=== PATIENT | female | born 1930 | race Caucasian/White ===

== ENCOUNTER 2016-11-16 23:06 | Emergency (ER) | payer MEDICARE, BC ==
[~2016-11-16 23:06] MED LIST: ADVAIR 2501 DISK W/D IH; ADVAIR 25028 BLISTE1 INH; ADVAIR 25028 BLISTE1 PO; ADVAIR 50028 BLISTE1 PO; ALPRAZOLAM0.25 M3 PO; ANTI-DIARRHEA2 MG PO; ASPIR 8181 M1 PO; ASPIR 8181 MG PO; ASPIRIN325 M3 PO; ASPIRIN81 M1 PO; ATROPINE SULFAT15 M1 RIGHT EYE; AUGMENTIN 875-1 EAC2 PO; BISOPROLOL FUMAR5 MG PO; CALCIUM600 M1 PO; CALTRATE 600 +1 EACH PO; CELLUVISC OP; COLACE100 M1 PO; EYLEA2 MG/0.01; EYLEA2 MG/0.01 IO; FAMOTIDINE40 MG/5 ML PO; IRON325 M3 PO; KEFLEX500 M4 PO; LIQUITEARS15 M1 EACH EYE; MILK OF MAGNESIA PO; MIRALAX17 G2 PO; NORCO 5-325 TA1 EACH PO; NORCO 5/3251 TA1 PO; NUCYNTA50 M1 PO; OMEPRAZOLE40 M2 PO; ONDANSETRON ODT4 M1 PO; POLYMYXIN B-TMP10 M1 RIGHT EYE; PREDNISOLONE ACE5 M1 RIGHT EYE; PREDNISONE10 M1 PO; PREDNISONE20 M1 PO; REFRESH P.M. O3.5 G2 RIGHT EYE; SENOKOT8.6 M1 PO; SERTRALINE HCL25 M3 PO; SIMVASTATIN; SIMVASTATIN20 M1 PO; SOTALOL; SOTALOL PO; SOTALOL80 M1 PO; SPIRIVA18 MC1 INH; SPIRIVA18 MCG IH; SYSTANE GEL EYE10 M1 OP; SYSTANE ULTRA 010 M1 EACH EYE; TYLENOL325 M2 PO; ULTRAM50 M1 PO; VALTREX500 M1 PO; VASOTEC2.5 MG PO; VIGAMOX3 M1 RIGHT EYE; VITAMIN D-32000 UNI4 PO; VITAMIN D350000 UNI1 PO; ZITHROMAX250 M1 PO; [UNRECOGNIZED DRUG - CODE] TOP; [UNRECOGNIZED DRUG - OTHER] OP; [UNRECOGNIZED DRUG - OTHER] RIGHT EYE
[2016-11-17] MEDS ORDERED: ADVAIR 25028 BLISTE1 PO (00:12)
[2016-11-17] MEDS ORDERED: [UNRECOGNIZED DRUG - OTHER] PO (00:13)
[2016-11-17] MEDS ORDERED: ASPIRIN81 M1 PO (00:13)
[2016-11-17] MEDS ORDERED: AYR (00:13)
[2016-11-17] MEDS ORDERED: CALCIUM CARBON600 M2 PO (00:14)
[2016-11-17] MEDS ORDERED: SYNTHROID25 MC1 PO (00:14)
[2016-11-17] MEDS ORDERED: FEROSUL325 M1 PO (00:14)
[2016-11-17] MEDS ORDERED: LIQUITEARS15 M1 OP (00:14)
[2016-11-17] MEDS ORDERED: OXYGEN (00:15)
[2016-11-17] MEDS ORDERED: [UNRECOGNIZED DRUG - OTHER] (00:15)
[2016-11-17] MEDS ORDERED: OMEPRAZOLE40 M2 PO (00:15)
[2016-11-17] MEDS ORDERED: GAVILAX17 G2 PO (00:15)
[2016-11-17] MEDS ORDERED: ZOCOR20 M1 PO (00:16)
[2016-11-17] MEDS ORDERED: POLYMYXIN B-TMP10 M1 RIGHT EYE (00:16)
[2016-11-17] MEDS ORDERED: ZOLOFT25 M1 PO (00:16)
[2016-11-17] MEDS ORDERED: SPIRIVA18 MC1 INH (00:17)
[2016-11-17] MEDS ORDERED: BETAPACE80 M2 PO (00:17)
[2016-11-17] MEDS ORDERED: VITAMIN D31000 UNI3 PO ×2 (00:18→00:19)
[2016-11-17] MEDS ORDERED: VALTREX500 M1 PO (00:18)
[2016-11-17] MEDS ORDERED: ZOFRAN4 M2 PO (00:20)
[2016-11-17] MEDS ORDERED: PROAIR HFA8.5 GM INH (00:20)
[2016-11-17] MEDS ORDERED: MILK OF MAGNESIA PO (00:20)
[2016-11-17] MEDS ORDERED: HYDROCORTISO453.6 G4 TP (00:20)
[2016-11-17] MEDS ORDERED: ROBAFEN100 MG/52 PO (00:21)
[2016-11-17] MEDS ORDERED: SYSTANE 0.3-0.1 EACH OP (00:22)
[2016-11-17] MEDS ORDERED: TYLENOL325 M2 PO (00:23)
[2016-11-17] MEDS ORDERED: ALPRAZOLAM0.25 M3 PO (00:23)
[2016-11-17] MEDS ORDERED: ANTACID EXTRA PO (00:24)
[2016-11-17] MEDS ORDERED: ANTI-DIARRHEAL2 M3 PO (00:24)
[2016-11-17 01:20] LABS: BASO % 0.3 % (0-2); EOS % 2.2 % (0-7); EOSINOPHIL ABSOLUTE COUNT 0.1 tho/cmm (0.0-0.7); HGB-HEMOGLOBIN 7.4 gm/dl (12.0-15.5); IMMATURE GRANULOCYTES ABSOLUTE 0.02 tho/cmm (0-0.03); IMMATURE GRANULOCYTES PERCENT 0.3 % (0-0.3); LYMPH % 16.1 % (20-45); LYMPH ABSOLUTE COUNT 0.9 tho/cmm (0.8-4.5); MCH (MEAN CORPUSCULAR HGB) 24.9 pg (28.0-32.0); MCHC MEAN CORPUSCULAR HGB CONC 30.8 % (32.0-36.0); MCV (MEAN CELL VOLUME) 80.8 fl (82.0-96.0); MEAN PLATELET VOLUME 8.5 cmc (9.4-12.4); MONO % 11.9 % (0-12); MONOCYTE ABSOLUTE COUNT 0.7 tho/cmm (0.0-1.2); NEUTROPHILS % 69.2 % (40-80); PLATELET COUNT 221 tho/cmm (150-450); RED BLOOD COUNT 2.97 mil/cmm (4.00-5.20); WHITE BLOOD COUNT 5.8 tho/cmm (4.0-10.0)
[2016-11-17 01:42] LABS: ALB/GLOB RATIO 0.6 (0.8-2.0); ALBUMIN 2.3 g/dl (3.5-5.0); ALKALINE PHOSPHATASE 157 U/L (33-138); ALT/SGPT 13 U/L (12-78); ANION GAP 6 mmol/L (0-20); AST/SGOT 20 U/L (10-40); BILIRUBIN,TOTAL 0.2 mg/dl (0-1.5); BLOOD UREA NITROGEN 13 mg/dl (6-24); CALCIUM 8.6 mg/dl (8.5-10.5); CARBON DIOXIDE-VENOUS 37 mmol/L (22-32); CHLORIDE 97 mmol/l (96-110); CREATININE 0.42 mg/dl (0.50-1.10); GLUCOSE 106 mg/dL (70-110); LIPASE 66 U/L (73-393); SODIUM 136 mmol/L (135-145); eGFR VALUE FOR BLACK >90 mL/Min
[2016-11-17 03:35] LABS: URINE APPEARANCE HAZY; URINE BILIRUBIN NEGATIVE (NEG); URINE BLOOD SMALL (NEG); URINE COLOR YELLOW; URINE GLUCOSE (UA) NEGATIVE (NEG); URINE KETONE NEGATIVE (NEG); URINE LEUKOCYTE ESTERASE POSITIVE (NEG); URINE NITRITE NEGATIVE (NEG); URINE PROTEIN SMALL (NEG)
[2016-11-17 03:36] LABS: URINE EPITHELIAL CELLS 0 /[HPF] (0-10); URINE WBC 20-30 /[HPF] (0-5)
[2016-11-17] MEDS ORDERED: NORCO 5/3251 TAB PO (04:29)
[2016-11-17] MEDS ORDERED: COLACE100 M1 PO (04:29)
== END 2016-11-17 04:43 ==
LOC: EDMED 23:06
PROVIDERS: Emergency Medicine
DX: I71.2 Thoracic aortic aneurysm, without rupture (principal); D64.9 Anemia, unspecified; I50.9 Heart failure, unspecified; J44.9 Chronic obstructive pulmonary disease, unspecified; Z79.82 Long term (current) use of aspirin
CPT/HCPCS: J2405; J3010; J7030; Q9967

== ENCOUNTER 2016-11-22 16:41 | Emergency (ER) | payer BC, MEDICARE ==
[~2016-11-22 16:41] MED LIST changes: +ANTACID EXTRA PO; +ANTI-DIARRHEAL2 M3 PO; +AYR; +BETAPACE80 M2 PO; +CALCIUM CARBON600 M2 PO; +FEROSUL325 M1 PO; +GAVILAX17 G2 PO; +HYDROCORTISO453.6 G4 TP; +LIQUITEARS15 M1 OP; +NORCO 5/3251 TAB PO; +OXYGEN; +PROAIR HFA8.5 GM INH; +ROBAFEN100 MG/52 PO; +SYNTHROID25 MC1 PO; +SYSTANE 0.3-0.1 EACH OP; +VITAMIN D31000 UNI3 PO; +ZOCOR20 M1 PO; +ZOFRAN4 M2 PO; +ZOLOFT25 M1 PO; +[UNRECOGNIZED DRUG - OTHER]; +[UNRECOGNIZED DRUG - OTHER] PO
[2016-11-22] MEDS ORDERED: XANAX0.25 M1 PO ×2 (16:51→17:04)
[2016-11-22] MEDS ORDERED: ADVAIR 25028 BLISTE1 INH (16:51)
[2016-11-22] MEDS ORDERED: BAYER CHEWABLE81 M2 PO (16:52)
[2016-11-22] MEDS ORDERED: AYR SALINE NASA14 GM (16:53)
[2016-11-22] MEDS ORDERED: CALCIUM CARBON600 M2 PO (16:53)
[2016-11-22] MEDS ORDERED: CEFPODOXIME PR100 M1 PO (16:54)
[2016-11-22] MEDS ORDERED: FEROSUL325 M1 PO (16:55)
[2016-11-22] MEDS ORDERED: COLACE100 M1 PO ×2 (16:55→17:10)
[2016-11-22] MEDS ORDERED: SYNTHROID25 MC1 PO (16:56)
[2016-11-22] MEDS ORDERED: LIQUITEARS15 M1 OP (16:56)
[2016-11-22] MEDS ORDERED: OMEPRAZOLE40 M2 PO (16:57)
[2016-11-22] MEDS ORDERED: EYLEA2 MG/0.01 IO (16:58)
[2016-11-22] MEDS ORDERED: MIRALAX17 G2 PO (16:59)
[2016-11-22] MEDS ORDERED: ZOCOR20 M1 PO (17:00)
[2016-11-22] MEDS ORDERED: ZOLOFT25 M1 PO (17:00)
[2016-11-22] MEDS ORDERED: POLYMYXIN B-TMP10 M1 RIGHT EYE (17:00)
[2016-11-22] MEDS ORDERED: SPIRIVA18 MC1 INH (17:01)
[2016-11-22] MEDS ORDERED: VALTREX500 M1 PO (17:01)
[2016-11-22] MEDS ORDERED: BETAPACE80 M2 PO (17:01)
[2016-11-22] MEDS ORDERED: VITAMIN D-32000 UNI4 PO (17:02)
[2016-11-22] MEDS ORDERED: TYLENOL325 M2 PO (17:03)
[2016-11-22] MEDS ORDERED: VITAMIN D350000 UNI1 PO (17:03)
[2016-11-22] MEDS ORDERED: TUMS200 MG PO (17:05)
[2016-11-22] MEDS ORDERED: ANTI-DIARRHEAL2 M3 PO (17:07)
[2016-11-22] MEDS ORDERED: BISAC-EVAC10 MG PR (17:10)
[2016-11-22] MEDS ORDERED: CEPACOL SORE T1 EAC2 MM (17:10)
[2016-11-22] MEDS ORDERED: NORCO 5-325 TA1 EACH PO (17:11)
[2016-11-22] MEDS ORDERED: ANUSOL-HC30 G1 TOP (17:12)
[2016-11-22] MEDS ORDERED: PROAIR HFA8.5 GM INH (17:13)
[2016-11-22] MEDS ORDERED: MILK OF MAGNESIA PO (17:13)
[2016-11-22] MEDS ORDERED: ZOFRAN4 M2 PO (17:13)
[2016-11-22] MEDS ORDERED: SYSTANE 0.3-0.415 ML OP (17:14)
[2016-11-22] MEDS ORDERED: ROBAFEN100 MG/52 PO (17:14)
[2016-11-22 18:19] LABS: URINE BILIRUBIN NEGATIVE (NEG); URINE BLOOD NEGATIVE (NEG); URINE GLUCOSE (UA) NEGATIVE (NEG); URINE KETONE NEGATIVE (NEG); URINE LEUKOCYTE ESTERASE NEGATIVE (NEG); URINE NITRITE NEGATIVE (NEG); URINE PROTEIN NEGATIVE (NEG)
[2016-11-22 18:24] LABS: URINE APPEARANCE CLEAR; URINE COLOR YELLOW
[2016-11-22 18:28] LABS: BASO % 0.2 % (0-2); EOS % 1.7 % (0-7); EOSINOPHIL ABSOLUTE COUNT 0.1 tho/cmm (0.0-0.7); HCT-HEMATOCRIT 24.5 % (34.0-49.0); HGB-HEMOGLOBIN 7.6 gm/dl (12.0-15.5); IMMATURE GRANULOCYTES ABSOLUTE 0.02 tho/cmm (0-0.03); IMMATURE GRANULOCYTES PERCENT 0.3 % (0-0.3); LYMPH % 16.4 % (20-45); LYMPH ABSOLUTE COUNT 0.9 tho/cmm (0.8-4.5); MCH (MEAN CORPUSCULAR HGB) 25.1 pg (28.0-32.0); MCV (MEAN CELL VOLUME) 80.9 fl (82.0-96.0); MEAN PLATELET VOLUME 8.4 cmc (9.4-12.4); MONO % 10.5 % (0-12); MONOCYTE ABSOLUTE COUNT 0.6 tho/cmm (0.0-1.2); NEUTROPHIL ABSOLUTE COUNT 4.1 tho/cmm (1.6-8.0); NEUTROPHIL-AUTOMATED 4.1 tho/cmm (1.6-8.0); NEUTROPHILS % 70.9 % (40-80); PLATELET COUNT 245 tho/cmm (150-450); RED BLOOD COUNT 3.03 mil/cmm (4.00-5.20); RED CELL DISTRIBUTION WIDTH 16.1 % (12.4-16.4); WHITE BLOOD COUNT 5.7 tho/cmm (4.0-10.0)
[2016-11-22 18:43] LABS: ALB/GLOB RATIO 0.5 (0.8-2.0); ALBUMIN 2.2 g/dl (3.5-5.0); ALKALINE PHOSPHATASE 169 U/L (33-138); ALT/SGPT 13 U/L (12-78); ANION GAP 9 mmol/L (0-20); AST/SGOT 19 U/L (10-40); BILIRUBIN,TOTAL 0.2 mg/dl (0-1.5); BLOOD UREA NITROGEN 10 mg/dl (6-24); CALCIUM 8.6 mg/dl (8.5-10.5); CARBON DIOXIDE-VENOUS 36 mmol/L (22-32); CHLORIDE 97 mmol/l (96-110); CREATININE 0.39 mg/dl (0.50-1.10); GLUCOSE 99 mg/dL (70-110); LIPASE 52 U/L (73-393); SODIUM 138 mmol/L (135-145); eGFR VALUE FOR BLACK >90 mL/Min
[2016-11-22] MEDS ORDERED: HYDROCODON-ACE1 EA16 PO (21:09)
== END 2016-11-22 21:30 ==
LOC: EDMED 16:41
PROVIDERS: Emergency Medicine
DX: I71.2 Thoracic aortic aneurysm, without rupture (principal); J90 Pleural effusion, not elsewhere classified; D64.9 Anemia, unspecified; Z79.899 Other long term (current) drug therapy
CPT/HCPCS: J1170; J7030; P9612; Q9967